=== PATIENT | male | born 1950 | race African-American/Black ===

== ENCOUNTER 2018-12-10 05:59 | Inpatient (IN) ==
[2018-12-07 10:37] LABS: Basophils % 0.6 % (0.0-0.8); Eosinophils # 0.3 10*3/uL (0.0-0.87); Eosinophils % 7.7 % (0.00-10.9); Hematocrit 43.9 VOL% (42.0-52.0); Hemoglobin 14.2 GM/DL (14.0-18.0); Immature Granulocytes % 0.3 %; Immature Granulocytes Absolute 0.01 #; Lymphocytes # 1.2 10*3/uL (1.4-4.0); Lymphocytes % 32.9 % (21.2-54.2); Mean Corpuscular HGB Conc 32.3 GM/DL (32-36); Mean Corpuscular Volume 88.9 FL (87-102); Mean Platelet Volume 10.8 FL (9.6-12.0); Monocytes % 12.4 % (1.7-12.7); Neutrophils % 46.1 % (38.7-73.9); Platelet Count 171 T/CUMM (130-400); Red Blood Count 4.94 MC/CUMM (3.8-5.5); Red Cell Distribution Width 13.4 % (9.3-17.3); White Blood Count 3.6 T/CUMM (4-12)
[2018-12-07 10:46] LABS: Apearance,Urine CLEAR (Clear); Bilirubin,Urine Negative (Negative); Blood, Urine Moderate mg/dL (Negative); Glucose,Urine (UA) Negative (Negative); Ketones,Urine Negative (Negative); Mucus,Urine Few /LPF (Occasional); Nitrite,Urine Negative (Negative); Protein,Urine Negative; RBC,Urine 9 /HPF (0-4); Squamous Epithelial Cell,Urine Occasional /HPF (0-10); Urine Color Yellow (Yellow); Urine Specific Gravity 1.023 (1.001-1.035); WBC,Urine <1 /HPF (0-6)
[2018-12-07 10:50] LABS: PT Patient Result 11.2 SECS (9.6-12.2); Partial Thromboplastin Time 28.2 SECS (20.8-36.0)
[2018-12-07 11:04] LABS: Albumin 4.2 G/DL (3.4-5.0); Bilirubin,Total 0.5 MG/DL (0.2-1.0); Calcium 9.3 MG/DL (8.5-10.1); Osmolality,Calculated 286.7 MOS/KG (273-304); Total Protein 7.8 G/DL (6.4-8.3)
[~2018-12-10 05:59] MED LIST: VANCOMYCIN 1,000 MG VIAL ONE; ceFAZolin 1,000 MG VIAL ONE
[2018-12-10] MEDS ORDERED: ceFAZolin 1,000 MG in SYRINGE 1 EACH IV ONE (06:00)
[2018-12-10] MEDS ORDERED: VANCOMYCIN INJ 1,000 MG in SODIUM CHLORIDE 0.9% 250 ML IV ONE (06:00)
[2018-12-10] MEDS ORDERED: fentaNYL 100 MCG/2 ML VIAL ONE (06:23)
[2018-12-10] MEDS ORDERED: ROPIVACAINE 0.5% 30 ML VIAL ONE (06:23)
[2018-12-10] MEDS ORDERED: MIDAZOLAM 2 MG/2 ML VIAL ONE (06:23)
[2018-12-10] MEDS ORDERED: DEXAMETHASONE 4 MG/1 ML VIAL ONE (06:24)
[2018-12-10] MEDS ORDERED: ONDANSETRON 4 MG/2 ML VIAL ONE (06:24)
[2018-12-10] MEDS ORDERED: BACITRACIN OINT 0.9 GM PACK TOP ONE (06:30)
[2018-12-10] MEDS ORDERED: TRANEXAMIC ACID 1,000 MG/10 ML VIAL ONE (06:31)
[2018-12-10] MEDS ORDERED: LACTATED RINGERS 1,000 ML IV SCH (07:00)
[2018-12-10] MEDS ORDERED: ZALEPLON 5 MG CAPSULE PO PRN (07:08)
[2018-12-10] MEDS ORDERED: diphenhydrAMINE CAP 25 MG CAPSULE PO PRN (07:08)
[2018-12-10] MEDS ORDERED: oxyCODONE IR 5 MG TABLET PO PRN ×2 (07:08)
[2018-12-10] MEDS ORDERED: HYDROmorphone 2 MG/1 ML VIAL IV PRN ×2 (07:08)
[2018-12-10] MEDS ORDERED: ONDANSETRON 4 MG/2 ML VIAL IV PRN (07:08)
[2018-12-10] MEDS ORDERED: MAGNESIUM HYDROXIDE SUSP 30 ML UDCUP PO PRN (07:08)
[2018-12-10] MEDS ORDERED: KETOROLAC 30 MG/1 ML VIAL IV SCH (07:30)
[2018-12-10] MEDS ORDERED: BUPIVACAINE SPINAL 0.75% 2 ML AMP SPINAL ONE (09:02)
[2018-12-10] MEDS ORDERED: PROPOFOL 200 MG/20 ML VIAL IV ONE (09:02)
[2018-12-10] MEDS ORDERED: LIDOCAINE 2% 5 ML VIAL ONE (09:02)
[2018-12-10] MEDS ORDERED: PHENYLEPHRINE 1 MG/10 ML SYRINGE IV ONE (09:02)
[2018-12-10] MEDS ORDERED: SODIUM CHLORIDE 0.9% 100 ML IV ONE (09:02)
[2018-12-10 09:18] LABS: Apearance,Urine CLEAR (Clear); Bilirubin,Urine Negative (Negative); Blood, Urine Moderate mg/dL (Negative); Glucose,Urine (UA) Negative (Negative); Ketones,Urine Negative (Negative); Mucus,Urine Many /LPF (Occasional); Nitrite,Urine Negative (Negative); Protein,Urine Negative; RBC,Urine 7 /HPF (0-4); Urine Color Yellow (Yellow); Urine Specific Gravity 1.016 (1.001-1.035); Urine Urobilinogen < 2.0 EU/DL (0.2-1.0); WBC,Urine <1 /HPF (0-6)
[2018-12-10] MEDS: ceFAZolin 1,000 MG in SYRINGE 1 EACH IV SCH ×2 (10:56→18:23)
[2018-12-10] MEDS: GABAPENTIN 400 MG CAPSULE PO SCH ×3 (10:57→20:31)
[2018-12-10] MEDS: DOCUSATE SODIUM 100 MG CAPSULE PO SCH ×2 (10:57→20:31)
[2018-12-10] MEDS: LACTATED RINGERS 1,000 ML IV SCH ×2 (10:58→15:25)
[2018-12-10] MEDS: KETOROLAC 30 MG/1 ML VIAL IV SCH ×4 (11:02→22:27)
[2018-12-10] MEDS: oxyCODONE/ACETAMINOPHEN 5-325 MG TABLET PO PRN (18:24)
[2018-12-11] MEDS: FONDAPARINUX 2.5 MG/0.5 ML SYRINGE SUBCUT SCH (01:18)
[2018-12-11] MEDS: oxyCODONE/ACETAMINOPHEN 5-325 MG TABLET PO PRN ×3 (02:35→15:47)
[2018-12-11] MEDS: LACTATED RINGERS 1,000 ML IV SCH (02:38)
[2018-12-11] MEDS: KETOROLAC 30 MG/1 ML VIAL IV SCH (04:35)
[2018-12-11 05:52] LABS: Basophils % 0.1 % (0.0-0.8); Hemoglobin 10.1 GM/DL (14.0-18.0); Immature Granulocytes % 0.6 %; Immature Granulocytes Absolute 0.06 #; Lymphocytes # 1.4 10*3/uL (1.4-4.0); Lymphocytes % 14.4 % (21.2-54.2); Mean Corpuscular HGB Conc 32.6 GM/DL (32-36); Mean Corpuscular Volume 87.1 FL (87-102); Mean Platelet Volume 11.6 FL (9.6-12.0); Monocytes % 11.2 % (1.7-12.7); Neutrophils % 73.7 % (38.7-73.9); Platelet Count 134 T/CUMM (130-400); Red Blood Count 3.56 MC/CUMM (3.8-5.5); Red Cell Distribution Width 13.4 % (9.3-17.3); White Blood Count 9.8 T/CUMM (4-12)
[2018-12-11 06:06] LABS: Calcium 8.5 MG/DL (8.5-10.1); Osmolality,Calculated 284.1 MOS/KG (273-304)
[2018-12-11] MEDS: DOCUSATE SODIUM 100 MG CAPSULE PO SCH ×2 (08:41→21:06)
[2018-12-11] MEDS: GABAPENTIN 400 MG CAPSULE PO SCH ×3 (08:41→21:06)
[2018-12-11] MEDS ORDERED: TAMSULOSIN 0.4 MG CAPSULE PO SCH (21:00)
[2018-12-12] MEDS: FONDAPARINUX 2.5 MG/0.5 ML SYRINGE SUBCUT SCH (01:30)
[2018-12-12] MEDS: oxyCODONE/ACETAMINOPHEN 5-325 MG TABLET PO PRN ×2 (04:02→09:47)
[2018-12-12 06:12] LABS: Basophils % 0.2 % (0.0-0.8); Eosinophils # 0.1 10*3/uL (0.0-0.87); Eosinophils % 0.8 % (0.00-10.9); Hematocrit 28.5 VOL% (42.0-52.0); Hemoglobin 9.4 GM/DL (14.0-18.0); Immature Granulocytes % 0.6 %; Immature Granulocytes Absolute 0.05 #; Lymphocytes # 1.3 10*3/uL (1.4-4.0); Mean Corpuscular Volume 87.4 FL (87-102); Mean Platelet Volume 11.6 FL (9.6-12.0); Monocytes % 12.1 % (1.7-12.7); Neutrophils % 71.3 % (38.7-73.9); Platelet Count 125 T/CUMM (130-400); Red Blood Count 3.26 MC/CUMM (3.8-5.5); Red Cell Distribution Width 13.7 % (9.3-17.3); White Blood Count 8.8 T/CUMM (4-12)
[2018-12-12] MEDS: GABAPENTIN 400 MG CAPSULE PO SCH ×2 (08:28→17:09)
[2018-12-12] MEDS: DOCUSATE SODIUM 100 MG CAPSULE PO SCH (08:28)
[2018-12-12 11:47] VITALS: BP 129/79
== END 2018-12-12 15:15 | disposition home health service (06) | DRG 470 ==
LOC: N.OR 05:59 → N.SDSINP 05:59 → EDSTATUS 07:30 → N.3E 09:50
PROVIDERS: ADMIT Orthopaedic Surgery; ATTEND Orthopaedic Surgery